=== PATIENT | male | born 1940 | race Caucasian/White ===

== ENCOUNTER 2018-10-05 10:54 | Observation (INO) | payer OTHER ==
[~2018-10-05] VITALS: Ht 157.5 cm; Wt 75.7 kg
[~2018-10-05 10:54] MED LIST: CLIN150C14 PO; IBUP-1007 PO
--- NOTE | 2018-10-05 11:27 | PHYS DOC ---
Past Medical History Past Medical History: Other Additional Past Medical Histor: BPH Past Surgical History: Other Additional Past Surgical Histo: ear surgery, hernia repair Additional Information: Nonsmoker Alcohol Use: None Drug Use: None Adult General Chief Complaint Chief Complaint: CHEST PAIN [facility] HPI Patient is a 77 year old male presents with chest pain since approximately 7: 00 this morning. There is radiation to his shoulders and neck. Worse with exertion. Better with rest. No nausea, vomiting, or diaphoresis. No previous history of this. Describes the pain as sharp and pressure[] Review of Systems Review of Systems Constitutional: Denies fever or chills [] Eyes: Denies change in visual acuity, redness, or eye pain [] HENT: Denies nasal congestion or sore throat [] Respiratory: Denies cough or shortness of breath [] Cardiovascular: No additional information not addressed in HPI [] GI: Denies abdominal pain, nausea, vomiting, bloody stools or diarrhea [] : Denies dysuria or hematuria [] Musculoskeletal: Denies back pain or joint pain [] Integument: Denies rash or skin lesions [] Neurologic: Denies headache, focal weakness or sensory changes [] Endocrine: Denies polyuria or polydipsia [] All other systems were reviewed and found to be within normal limits, except as documented in this note. Current Medications Current Medications Current Medications Medications (Trade) Dose Ordered Sig/Wilfrido Start Time Stop Time Status Last Admin Dose Admin Aspirin (Children'S Aspirin) 324 mg 1X ONCE 10/05/18 11:30 10/05/18 11:31 DC 10/05/18 11:30 162 MG Allergies Allergies Allergies Coded Allergies Type Severity Reaction Last Updated Verified No Known Drug Allergies 05/22/16 No Physical Exam Physical Exam Constitutional: Well developed, well nourished, no acute distress, non-toxic appearance. [] HENT: Normocephalic, atraumatic, bilateral external ears normal, oropharynx moist, no oral exudates, nose normal. [] Eyes: PERRLA, EOMI, conjunctiva normal, no discharge. [] Neck: Normal range of motion, no tenderness, supple, no stridor. [] Cardiovascular:Heart rate regular rhythm, no murmur [] Lungs & Thorax: Bilateral breath sounds clear to auscultation [] Abdomen: Bowel sounds normal, soft, no tenderness, no masses, no pulsatile masses. [] Skin: Warm, dry, no erythema, no rash. [] Back: No tenderness, no CVA tenderness. [] Extremities: No tenderness, no cyanosis, no clubbing, ROM intact, no edema. [] Neurologic: Alert and oriented X 3, normal motor function, normal sensory function, no focal deficits noted. [] Psychologic: Affect normal, judgement normal, mood normal. [] Current Patient Data Vital Signs Vital Signs Date Time Temp Pulse Resp B/P (MAP) Pulse Ox O2 Delivery O2 Flow Rate FiO2 10/05/18 11:17 96.2 80 22 151/74 (99) 98 Room Air 96.2 Lab Values Laboratory Tests Test 10/05/18 11:09 White Blood Count 16.1 x10^3/uL (4.0-11.0) H Red Blood Count 5.13 x10^6/uL (4.30-5.70) Hemoglobin 15.1 g/dL (13.0-17.5) Hematocrit 45.8 % (39.0-53.0) Mean Corpuscular Volume 89 fL (79-100) Mean Corpuscular Hemoglobin 29 pg (25-35) Mean Corpuscular Hemoglobin Concent 33 g/dL (31-37) Red Cell Distribution Width 13.7 % (11.5-14.5) Platelet Count 294 x10^3/uL (140-400) Neutrophils (%) (Auto) 79 % (31-73) H Lymphocytes (%) (Auto) 12 % (24-48) L Monocytes (%) (Auto) 8 % (0-9) Eosinophils (%) (Auto) 0 % (0-3) Basophils (%) (Auto) 1 % (0-3) Neutrophils # (Auto) 12.7 x10^3uL (1.8-7.7) H Lymphocytes # (Auto) 1.9 x10^3/uL (1.0-4.8) Monocytes # (Auto) 1.3 x10^3/uL (0.0-1.1) H Eosinophils # (Auto) 0.1 x10^3/uL (0.0-0.7) Basophils # (Auto) 0.1 x10^3/uL (0.0-0.2) Platelet Estimate Pending Prothrombin Time 13.6 SEC (11.7-14.0) Prothrombin Time INR 1.1 (0.8-1.1) Sodium Level 139 mmol/L (136-145) Potassium Level 4.6 mmol/L (3.5-5.1) Chloride Level 103 mmol/L (98-107) Carbon Dioxide Level 24 mmol/L (21-32) Anion Gap 12 (6-14) Blood Urea Nitrogen 20 mg/dL (8-26) Creatinine 0.8 mg/dL (0.7-1.3) Estimated GFR (Cockcroft-Gault) 94.2 BUN/Creatinine Ratio 25 (6-20) H Glucose Level 96 mg/dL (70-99) Calcium Level 9.0 mg/dL (8.5-10.1) Magnesium Level 2.1 mg/dL (1.8-2.4) Total Bilirubin 0.4 mg/dL (0.2-1.0) Aspartate Amino Transferase (AST) 22 U/L (15-37) Alanine Aminotransferase (ALT) 30 U/L (16-63) Alkaline Phosphatase 98 U/L (46-116) Troponin I Quantitative < 0.017 ng/mL (0.000-0.055) PN-Iff-D-Type Natriuretic Peptide 294 pg/mL (0-449) Total Protein 7.3 g/dL (6.4-8.2) Albumin 3.9 g/dL (3.4-5.0) Albumin/Globulin Ratio 1.1 (1.0-1.7) Lipase 82 U/L (73-393) Laboratory Tests 10/05/18 11:09 Laboratory Tests 10/05/18 11:09 EKG EKG EKG shows a sinus rhythm, 75 bpm, left axis, QTC 431 ms, no ST elevations, nonspecific T-wave changes inferiorly and laterally, no old EKG available for comparison. Interpreted by me at 1106[] Radiology/Procedures Radiology/Procedures EXAM: Chest, single view HISTORY: Chest pain COMPARISON: None FINDINGS: 2 views of the chest are obtained. There is no infiltrate, pleural effusion or pneumothorax. There is a prominent cardiac silhouette, a component of which is due to portable technique. IMPRESSION: No acute pulmonary finding. [] Course & Med Decision Making Course & Med Decision Making Pertinent Labs and Imaging studies reviewed. (See chart for details) ED course: Patient arrived, was placed in bed, and tolerated exam well. He was given 2 baby aspirin since he had taken 2 baby aspirin at home. His pain was significantly improved. After the return of lab and imaging findings, these were discussed with the patient who voiced understanding. Consultation was made with his primary care physician who graciously admitted him. Further consultation is being made with cardiology for further evaluation and treatment. Patient is being admitted in improved condition. Medical decision making: Patient has chest pain that is concerning for cardiac etiology. Patient does not have a STEMI, no pneumonia, pneumothorax, doubt that this is a pulmonary embolism given that he has no PE risk factors such as trauma , stasis, or known hypercoagulable state. Once of this being a thoracic aneurysm nor esophageal rupture.[] Dragon Disclaimer Dragon Disclaimer This electronic medical record was generated, in whole or in part, using a voice recognition dictation system. Departure Departure Impression: Primary Impression: Chest pain Disposition: 09 ADMITTED INPATIENT Admitting Physician: Wong Ortiz Condition: IMPROVED Referrals: WONG ORTIZ MD (PCP) Problem Qualifiers Primary Impression: Chest pain Chest pain type: unspecified Qualified Codes: R07.9 - Chest pain, unspecified STEVE PAIGE Oct 05, 2018 11:27
[2018-10-05] MEDS ORDERED: ASPIRIN CHEWABLE 81 MG TABLET. PO ONE (11:30)
[2018-10-05 11:41] LABS: BASO # 0.1 x10^3/uL (0.0-0.2); BASO % 1 % (0-3); EOS # 0.1 x10^3/uL (0.0-0.7); EOS % 0 % (0-3); HEMATOCRIT 45.8 % (39.0-53.0); HEMOGLOBIN 15.1 g/dL (13.0-17.5); LYMPH # 1.9 x10^3/uL (1.0-4.8); LYMPH % 12 % (24-48); MEAN CORPUSCULAR HEMOGLOBIN 29 pg (25-35); MEAN CORPUSCULAR HGB CONC 33 g/dL (31-37); MEAN CORPUSCULAR VOLUME 89 fL (79-100); MONO # 1.3 x10^3/uL (0.0-1.1); MONO % 8 % (0-9); NEUT # 12.7 x10^3uL (1.8-7.7); NEUT % 79 % (31-73); PLATELET COUNT 294 x10^3/uL (140-400); RED BLOOD COUNT 5.13 x10^6/uL (4.30-5.70); RED CELL DISTRIBUTION WIDTH 13.7 % (11.5-14.5); WHITE BLOOD COUNT 16.1 x10^3/uL (4.0-11.0)
[2018-10-05 11:54] LABS: PROTHROMBIN TIME PATIENT 13.6 SEC (11.7-14.0)
[2018-10-05 12:08] LABS: CREATININE 0.8 mg/dL (0.7-1.3); GFR 94.2; POTASSIUM 4.6 mmol/L (3.5-5.1)
--- NOTE | 2018-10-05 12:15 | RAD ---
EXAM: Chest, single view HISTORY: Chest pain COMPARISON: None FINDINGS: 2 views of the chest are obtained. There is no infiltrate, pleural effusion or pneumothorax. There is a prominent cardiac silhouette, a component of which is due to portable technique. IMPRESSION: No acute pulmonary finding. Electronically signed by: Farida Saldana MD (10/05/2018 12:12 PM) [facility]
[2018-10-05 12:38] LABS: ALBUMIN 3.9 g/dL (3.4-5.0); ALBUMIN/GLOBULIN RATIO 1.1 (1.0-1.7); MAGNESIUM 2.1 mg/dL (1.8-2.4); TOTAL BILIRUBIN 0.4 mg/dL (0.2-1.0); TOTAL PROTEIN 7.3 g/dL (6.4-8.2)
--- NOTE | 2018-10-05 12:48 | EKG ---
[facility] [address] [place] [address] Test Date: 2018-10-05 Test Time: 11:03:07 Pat Name: DOTTIE DE SOUZA Department: Room: Gender: M Disintegrator Operator: : 1940 Requested By: STEVE PAIGE Order Number: [id number] Reading MD: Chris Valdez MD Measurements Intervals Anderson Rate: 75 P: 56 [place]: 156 QRS: -8 QRSD: 90 T: -14 QT: 384 QTc: 431 Interpretive Statements SINUS RHYTHM CANNOT RULE OUT PRIOR INFERIOR INFARCT NON-SPECIFIC ST/T CHANGES Electronically Signed On 10-05-2018 19:36:17 MECHANICAL MAINTENANCE INSTRUCTOR by Chris Valdez MD
[2018-10-05 13:07] LABS: % ATYL 3 % (0-0); % BASOS 1 % (0-3); % LYMPHS 8 % (24-48); % MONOS 8 % (0-10); % SEGS 80 % (35-66)
[2018-10-05 13:10] LABS: PLT ESTIMATE ADEQUATE (ADEQUATE)
[2018-10-05] MEDS ORDERED: TADA5TAB PO (14:48)
[2018-10-05] MEDS ORDERED: adderall (14:51)
[2018-10-05 15:00] VITALS: BP 151/63
--- NOTE | 2018-10-05 15:42 | PDOC2 ---
FLORENCIO STONE MILLED RICE BROKER 10/05/18 1542: CARDIAC CONSULT DATE OF CONSULT Date of Consult DATE: 10/05/18 TIME: 15:38 REASON FOR CONSULT Reason for Consult: Chest pain REFERRING PHYSICIAN Referring Physician: Dr. Tam SOURCE Source: Chart review, Patient HISTORY OF PRESENT ILLNESS HISTORY OF PRESENT ILLNESS This is a 77 yo male who presented secondary to chest pain. Patient reports that he work up this morning with pain in his central chest. Hurts to take a deep breath. Complaints of the muscles in his neck hurting. No dizziness, diaphoresis, palpitations, SOA, or nausea/vomiting. No recent ABBASI, orthopnea, or orthopnea. PAST MEDICAL HISTORY Cardiovascular: HTN Pulmonary: No pertinent hx CENTRAL NERVOUS SYSTEM: Other (no pertinent hx) GI: No pertinent hx Heme/Onc: No pertinent hx Hepatobiliary: No pertinent hx Psych: Other (ADHD) Musculoskeletal: Other (no pertinent hx) Rheumatologic: No pertinent hx Infectious disease: No pertinent hx ENT: No pertinent hx Renal/: No pertinent hx Endocrine: No pertinent hx Dermatology: No pertinent hx PAST SURGICAL HISTORY Past Surgical History: No pertinent history FAMILY HISTORY Family History: Hypertension SOCIAL HISTORY Smoke: Quit (quit 3 years ago, now vapes) ALCOHOL: none Drugs: None Lives: with Family CURRENT MEDICATIONS CURRENT MEDICATIONS Current Medications Medications (Trade) Dose Ordered Sig/Wilfrido Route PRN Reason Start Time Stop Time Status Last Admin Dose Admin Aspirin (Children'S Aspirin) 324 mg 1X ONCE PO 10/05/18 11:30 10/05/18 11:31 DC 10/05/18 11:30 ALLERGIES ALLERGIES: Coded Allergies: No Known Drug Allergies (Unverified , 05/22/16) ROS Review of System 14 point ROS conducted with pertinent positives noted above in HPI. PHYSICAL EXAM General: Alert, Oriented X3, Cooperative, No acute distress HEENT: Atraumatic Lungs: Clear to auscultation, Normal air movement Heart: Regular rate, Normal S1, Normal S2, No murmurs Abdomen: Soft, No tenderness Extremities: No edema, Normal pulses Skin: No significant lesion Neuro: Normal speech, Sensation intact Psych/Mental Status: Mental status NL, Mood NL MUSCULOSKELETAL: Osteoarthritic changes both hands VITALS VITALS Vital Signs Date Time Temp Pulse Resp B/P (MAP) Pulse Ox O2 Delivery O2 Flow Rate FiO2 10/05/18 13:37 82 149/91 (110) 100 Room Air 10/05/18 12:37 25 10/05/18 11:17 96.2 96.2 LABS Lab: Laboratory Tests Test 10/05/18 11:09 White Blood Count 16.1 x10^3/uL (4.0-11.0) Red Blood Count 5.13 x10^6/uL (4.30-5.70) Hemoglobin 15.1 g/dL (13.0-17.5) Hematocrit 45.8 % (39.0-53.0) Mean Corpuscular Volume 89 fL (79-100) Mean Corpuscular Hemoglobin 29 pg (25-35) Mean Corpuscular Hemoglobin Concent 33 g/dL (31-37) Red Cell Distribution Width 13.7 % (11.5-14.5) Platelet Count 294 x10^3/uL (140-400) Neutrophils (%) (Auto) 79 % (31-73) Lymphocytes (%) (Auto) 12 % (24-48) Monocytes (%) (Auto) 8 % (0-9) Eosinophils (%) (Auto) 0 % (0-3) Basophils (%) (Auto) 1 % (0-3) Neutrophils # (Auto) 12.7 x10^3uL (1.8-7.7) Lymphocytes # (Auto) 1.9 x10^3/uL (1.0-4.8) Monocytes # (Auto) 1.3 x10^3/uL (0.0-1.1) Eosinophils # (Auto) 0.1 x10^3/uL (0.0-0.7) Basophils # (Auto) 0.1 x10^3/uL (0.0-0.2) Segmented Neutrophils % 80 % (35-66) Lymphocytes % 8 % (24-48) Atypical Lymphocytes % (Manual) 3 % (0-0) Monocytes % 8 % (0-10) Basophils % 1 % (0-3) Platelet Estimate Adequate (ADEQUATE) Large Platelets Few Giant Platelets Occ Prothrombin Time 13.6 SEC (11.7-14.0) Prothromb Time International Ratio 1.1 (0.8-1.1) Sodium Level 139 mmol/L (136-145) Potassium Level 4.6 mmol/L (3.5-5.1) Chloride Level 103 mmol/L (98-107) Carbon Dioxide Level 24 mmol/L (21-32) Anion Gap 12 (6-14) Blood Urea Nitrogen 20 mg/dL (8-26) Creatinine 0.8 mg/dL (0.7-1.3) Estimated GFR (Cockcroft-Gault) 94.2 BUN/Creatinine Ratio 25 (6-20) Glucose Level 96 mg/dL (70-99) Calcium Level 9.0 mg/dL (8.5-10.1) Magnesium Level 2.1 mg/dL (1.8-2.4) Total Bilirubin 0.4 mg/dL (0.2-1.0) Aspartate Amino Transf (AST/SGOT) 22 U/L (15-37) Alanine Aminotransferase (ALT/SGPT) 30 U/L (16-63) Alkaline Phosphatase 98 U/L (46-116) Troponin I Quantitative < 0.017 ng/mL (0.000-0.055) KT-Ybg-O-Type Natriuretic Peptide 294 pg/mL (0-449) Total Protein 7.3 g/dL (6.4-8.2) Albumin 3.9 g/dL (3.4-5.0) Albumin/Globulin Ratio 1.1 (1.0-1.7) Lipase 82 U/L (73-393) ASSESSMENT/PLAN ASSESSMENT/PLAN 1. Chest pain, atypical. initial trop negative. Most probably MSK in origin 2. Hypertension; mildly elevated 3. Leukocytosis Recommendations lipids trend troponin Add ACEi Obtain echo to assess LV systolic function. If troponin series negative and not able to get to today, can do on an outpatient basis. Supportive care. VAUGHN MEJIA MD 10/05/187: CARDIAC CONSULT ASSESSMENT/PLAN ASSESSMENT/PLAN Patient seen and examined. Agree with above nurse practitioner note. 77-year-old man with hypertension coming in with nonspecific cardiac complaints. Most likely muscular skeletal in origin. Initial troponin negative. Initial EKG without any significant abnormalities and cannot rule out a prior inferior infarct. Okay to discharge after cardiac enzyme panel is obtained 3. We will plan for an outpatient evaluation to rule out occult ischemia. Thank you for this consultation. FLORENCIO STONE APRN Oct 05, 2018 15:42 VAUGHN MEJIA MD Oct 05, 2018 19:37
[2018-10-05] MEDS ORDERED: IBUPROFEN 200 MG TABLET. PO PRN (17:00)
[2018-10-05] MEDS: METHOCARBAMOL 500 MG TABLET PO PRN ×2 (17:49→21:00)
[2018-10-05 19:25] VITALS: BP 108/56
[2018-10-05 23:30] VITALS: BP 145/90
[2018-10-06 03:45] VITALS: BP 115/60
[2018-10-06 05:24] LABS: CHOLESTEROL/HDL RATIO 2.9
[2018-10-06 07:20] VITALS: BP 117/59
[2018-10-06] MEDS: METHYLPHENIDATE HCL 5 MG TABLET PO SCH ×2 (07:30→11:11)
[2018-10-06] MEDS ORDERED: ASPIRIN ENTERIC COATED 81 MG TABLET.DR. PO SCH (08:00)
[2018-10-06] MEDS ORDERED: LISINOPRIL 10 MG TABLET PO SCH (09:00)
[2018-10-06 10:38] VITALS: BP 114/58
[2018-10-06] MEDS ORDERED: adderall PO (11:13)
[2018-10-06] MEDS ORDERED: SILD20TA2 PO (11:13)
--- NOTE | 2018-10-06 11:24 | PDOC ---
PROGRESS NOTES Subjective Subjective Patient without complaint, chest pain has improved. Objective Objective Vital Signs Date Time Temp Pulse Resp B/P (MAP) Pulse Ox O2 Delivery O2 Flow Rate FiO2 10/06/18 10:38 98.1 71 20 114/58 (76) 94 Room Air 98.1 10/05/18 15:00 3.5 Intake and Output 10/06/18 07:00 Intake Total 550 ml Balance 550 ml Intake Oral 550 ml # Voids 1 Physical Exam Abdomen: Normal bowel sounds, Soft, No tenderness Heart: Regular rate Extremities: No edema General: Alert, Oriented X3, No acute distress Lungs: Clear to auscultation Assessment Assessment Problems Medical Problems: (1) Chest pain Status: Acute Plan Plan of Care 1. Musculoskeletal chest pain - Patient has muscle strain from lifting heavy items while moving recently. Troponin negative, EKG without acute ischemic changes. Cardiology does not feel further evaluation is presently indicated. Home today on OTC NSAID's as needed. 2. ADD - stable on his usual medication. Comment Review of Relevant I have reviewed the following items terry (where applicable) has been applied. Labs Laboratory Tests Test 10/05/18 11:09 10/05/18 18:15 10/06/18 00:15 10/06/18 03:00 White Blood Count 16.1 x10^3/uL (4.0-11.0) Red Blood Count 5.13 x10^6/uL (4.30-5.70) Hemoglobin 15.1 g/dL (13.0-17.5) Hematocrit 45.8 % (39.0-53.0) Mean Corpuscular Volume 89 fL (79-100) Mean Corpuscular Hemoglobin 29 pg (25-35) Mean Corpuscular Hemoglobin Concent 33 g/dL (31-37) Red Cell Distribution Width 13.7 % (11.5-14.5) Platelet Count 294 x10^3/uL (140-400) Neutrophils (%) (Auto) 79 % (31-73) Lymphocytes (%) (Auto) 12 % (24-48) Monocytes (%) (Auto) 8 % (0-9) Eosinophils (%) (Auto) 0 % (0-3) Basophils (%) (Auto) 1 % (0-3) Neutrophils # (Auto) 12.7 x10^3uL (1.8-7.7) Lymphocytes # (Auto) 1.9 x10^3/uL (1.0-4.8) Monocytes # (Auto) 1.3 x10^3/uL (0.0-1.1) Eosinophils # (Auto) 0.1 x10^3/uL (0.0-0.7) Basophils # (Auto) 0.1 x10^3/uL (0.0-0.2) Segmented Neutrophils % 80 % (35-66) Lymphocytes % 8 % (24-48) Atypical Lymphocytes % (Manual) 3 % (0-0) Monocytes % 8 % (0-10) Basophils % 1 % (0-3) Platelet Estimate Adequate (ADEQUATE) Large Platelets Few Giant Platelets Occ Prothrombin Time 13.6 SEC (11.7-14.0) Prothromb Time International Ratio 1.1 (0.8-1.1) Sodium Level 139 mmol/L (136-145) Potassium Level 4.6 mmol/L (3.5-5.1) Chloride Level 103 mmol/L (98-107) Carbon Dioxide Level 24 mmol/L (21-32) Anion Gap 12 (6-14) Blood Urea Nitrogen 20 mg/dL (8-26) Creatinine 0.8 mg/dL (0.7-1.3) Estimated GFR (Cockcroft-Gault) 94.2 BUN/Creatinine Ratio 25 (6-20) Glucose Level 96 mg/dL (70-99) Calcium Level 9.0 mg/dL (8.5-10.1) Magnesium Level 2.1 mg/dL (1.8-2.4) Total Bilirubin 0.4 mg/dL (0.2-1.0) Aspartate Amino Transf (AST/SGOT) 22 U/L (15-37) Alanine Aminotransferase (ALT/SGPT) 30 U/L (16-63) Alkaline Phosphatase 98 U/L (46-116) Troponin I Quantitative < 0.017 ng/mL (0.000-0.055) < 0.017 ng/mL (0.000-0.055) < 0.017 ng/mL (0.000-0.055) < 0.017 ng/mL (0.000-0.055) VP-Zcl-T-Type Natriuretic Peptide 294 pg/mL (0-449) Total Protein 7.3 g/dL (6.4-8.2) Albumin 3.9 g/dL (3.4-5.0) Albumin/Globulin Ratio 1.1 (1.0-1.7) Lipase 82 U/L (73-393) Triglycerides Level 75 mg/dL (0-150) Cholesterol Level 149 mg/dL (0-200) LDL Cholesterol, Calculated 83 mg/dL (0-100) VLDL Cholesterol, Calculated 15 mg/dL (0-40) Non-HDL Cholesterol Calculated 98 mg/dL (0-129) HDL Cholesterol 51 mg/dL (40-60) Cholesterol/HDL Ratio 2.9 Laboratory Tests Test 10/05/18 18:15 10/06/18 00:15 10/06/18 03:00 Troponin I Quantitative < 0.017 ng/mL (0.000-0.055) < 0.017 ng/mL (0.000-0.055) < 0.017 ng/mL (0.000-0.055) Triglycerides Level 75 mg/dL (0-150) Cholesterol Level 149 mg/dL (0-200) LDL Cholesterol, Calculated 83 mg/dL (0-100) VLDL Cholesterol, Calculated 15 mg/dL (0-40) Non-HDL Cholesterol Calculated 98 mg/dL (0-129) HDL Cholesterol 51 mg/dL (40-60) Cholesterol/HDL Ratio 2.9 Medications Current Medications Aspirin (Children'S Aspirin) 324 mg 1X ONCE PO Last administered on 10/05/18at 11:30; Start 10/05/18 at 11:30; Stop 10/05/18 at 11:31; Status DC Ibuprofen (Motrin) 600 mg PRN Q6HRS PRN PO INFLAMMATION; Start 10/05/18 at 17:00 Methocarbamol (Robaxin) 500 mg TID PRN PRN PO MUSCLE SPASMS Last administered on 10/05/18at 21:00; Start 10/05/18 at 17:30 Methylphenidate HCl (Ritalin) 20 mg BIDACBL PO ; Start 10/06/18 at 07:30 Lisinopril (Prinivil) 10 mg DAILY PO Last administered on 10/06/18at 08:35; Start 10/06/18 at 09:00 Aspirin (Ecotrin) 81 mg DAILYWBKFT PO Last administered on 10/06/18at 08:35; Start 10/06/18 at 08:00 Active Scripts Active Sildenafil (Sildenafil Citrate) 20 Mg Tablet 20 Mg PO DAILY PRN 30 Days [adderall] 30 mg 1 PO BID Ibuprofen 600 Mg Tablet 600 Mg PO PRN Q6HRS PRN Vitals/I & O Vital Sign - Last 24 Hours 10/05/18 10/05/18 10/05/18 10/05/18 11:37 12:07 12:37 13:07 Pulse 78 76 74 76 Resp 24 25 B/P (MAP) 144/77 (99) 151/78 (102) 161/75 (103) 141/77 (98) Pulse Ox 96 97 96 98 O2 Delivery Room Air Room Air Room Air Room Air 10/05/18 10/05/18 10/05/18 10/05/18 13:37 15:00 15:25 19:25 Temp 97.7 97.7 97.7 97.7 Pulse 82 80 84 Resp 18 22 B/P (MAP) 149/91 (110) 151/63 (92) 108/56 (73) Pulse Ox 100 95 94 O2 Delivery Room Air Nasal Cannula Room Air Room Air O2 Flow Rate 3.5 10/05/18 10/05/18 10/06/18 10/06/18 20:06 23:30 03:45 07:20 Temp 97.9 97.7 98.1 97.9 97.7 98.1 Pulse 63 76 78 Resp 22 20 20 B/P (MAP) 145/90 (108) 115/60 (78) 117/59 (78) Pulse Ox 94 94 94 O2 Delivery Room Air Room Air Room Air Room Air 10/06/18 10/06/18 10/06/18 08:08 08:35 10:38 Temp 98.1 98.1 Pulse 71 Resp 20 B/P (MAP) 117/59 114/58 (76) Pulse Ox 94 O2 Delivery Room Air Room Air Intake and Output 10/05/18 10/05/18 10/06/18 15:00 23:00 07:00 Intake Total 50 ml 500 ml Balance 50 ml 500 ml SRINIVASAN LARKIN MD Oct 06, 2018 11:24
--- NOTE | 2018-10-06 11:43 | SSS ---
ADMIT DATE: 10/06/2018 CHIEF COMPLAINT: Chest pain. HISTORY OF PRESENT ILLNESS: The patient is a 77-year-old male with no history of coronary artery disease who presented to the Emergency Room with the above complaint. He reported the onset of diffuse chest pain since earlier on the day of admission. There was some radiation to his shoulders and his neck. He had never experienced pain like this in the past. Initial evaluation in the Emergency Room showed a normal troponin, an EKG without acute ischemic change and a clear chest x-ray, and the patient was admitted for further care. PAST MEDICAL HISTORY: Attention deficit disorder, erectile dysfunction, hypertension. PAST SURGICAL HISTORY: Tonsillectomy, hernia repair. ALLERGIES: The patient has no known drug allergies. HOME MEDICATIONS: Adderall 30 mg b.i.d., sildenafil 20 mg 1-5 tablets daily p.r.n. FAMILY HISTORY: Noncontributory. SOCIAL HISTORY: The patient is and lives at home with his spouse. He has a long smoking history, but has quit smoking cigarettes. He does not drink alcohol to excess. REVIEW OF SYSTEMS: The patient has been feeling well. He denies fever or chills. He denies cough or shortness of breath. He denies other episodes of chest pain. He denies abdominal pain, nausea or vomiting. He denies lower extremity edema. He reports that he was helping a family member with moving on the day prior to admission and did carry some heavy objects during this. He did not have any chest pain at that time. PHYSICAL EXAMINATION: GENERAL: The patient is alert and oriented x 3, resting comfortably in bed, in no acute distress. HEENT: PERRL, EOMI, sclerae clear. Oropharynx: Mucous membranes moist. NECK: Supple, without lymphadenopathy. CHEST: Clear to auscultation. There is no chest wall tenderness to palpation. CARDIOVASCULAR: Regular rhythm without murmur. ABDOMEN: Soft, nontender, normoactive bowel sounds are present. EXTREMITIES: Bilateral lower extremities are without edema. HOSPITAL COURSE: The patient was admitted and placed on telemetry where he remained in sinus rhythm. Troponin has been checked 4 times and remains less than 0.017. The patient's musculoskeletal pain has been treated with some ibuprofen. He reports that the pain is much improved. He has been seen in consultation by Dr. Valdez who does not recommend any further evaluation at this time. The patient will be discharged to home today. FINAL DIAGNOSES: 1. Musculoskeletal chest pain. 2. Attention deficit disorder. 3. Erectile dysfunction. DISCHARGE MEDICATIONS: Remain the same as at admission. FOLLOWUP: With Dr. Ortiz as needed. Follow up with Cardiology as advised. SRINIVASAN LARKIN MD DR: YUDITH/allie JOB#: [id number] / [id number] SOLANGE
--- NOTE | 2018-10-06 12:03 | NUR ---
Pt discharged to home. Pt left with all belongings, and discharge orders, education. Pt alert and oriented at time of d/c. to drive home. Pt assisted to car with staff and . IV d/c without complications. Denies further needs.
== END 2018-10-06 12:05 | disposition home or self-care (01) ==
LOC: ER 10:54 → 2 NORTH 12:58
PROVIDERS: ADMIT Family Medicine; ATTEND Family Medicine
DX: R07.89 Other chest pain (principal); N40.0 Benign prostatic hyperplasia without lower urinary tract symptoms; I10 Essential (primary) hypertension; F98.8 Other specified behavioral and emotional disorders with onset usually occurring in childhood and adolescence; N52.9 Male erectile dysfunction, unspecified; Z98.890 Other specified postprocedural states; Z87.891 Personal history of nicotine dependence
CPT/HCPCS: 36415; 71045; 80053; 80061; 83690; 83735; 83880; 84484; 85007; 85025; 85610; 93005; 99284; G0378; G0379

== ENCOUNTER 2021-04-19 15:53 | Emergency (ER) | payer SELFPAY ==
[~2021-04-19 15:53] MED LIST changes: -CLIN150C14 PO; +CLIN150C16 PO; +SILD20TA4 PO; +TADA5TAB PO; +adderall; +adderall PO
== END 2021-04-19 19:15 | disposition left against medical advice (07) ==
LOC: ER 15:53
DX: S69.91XA Unspecified injury of right wrist, hand and finger(s), initial encounter (principal); Z53.21 Procedure and treatment not carried out due to patient leaving prior to being seen by health care provider; X58.XXXA Exposure to other specified factors, initial encounter; Y93.89 Activity, other specified; Y92.89 Other specified places as the place of occurrence of the external cause; Y99.8 Other external cause status